=== PATIENT | female | born 1965 | race Caucasian/White ===

== ENCOUNTER → 2024-02-14 08:55 | Outpatient (REF) | payer OTHER, SELFPAY | LOC: WDC 08:55 | PROVIDERS: ATTENDING PHYSICIAN Internal Medicine | DX: R92.8 Other abnormal and inconclusive findings on diagnostic imaging of breast (principal) | CPT/HCPCS: 76642; 77061; 77065 ==

== ENCOUNTER → 2024-02-15 08:14 | Outpatient (REF) | payer OTHER, SELFPAY ==
--- NOTE | 2024-02-15 13:49 | OID.BR.INTR ---
[facility] Breast Navigator - Initial
- -
Did not meet patient at time of biopsy. Will follow up per protocol.
== END ==
LOC: WDC 08:14
PROVIDERS: ATTENDING PHYSICIAN Internal Medicine
DX: N63.13 Unspecified lump in the right breast, lower outer quadrant (principal)
CPT/HCPCS: 88305; 19083; 77065; 88341; 88342; 88360; A4648

== ENCOUNTER → 2024-03-06 08:36 | Outpatient (REF) | payer OTHER, SELFPAY | LOC: WDC 08:36 | PROVIDERS: ATTENDING PHYSICIAN Surgery | DX: C50.411 Malignant neoplasm of upper-outer quadrant of right female breast (principal) | CPT/HCPCS: 19285; 38792; 76942; 77065; A4648; A9541 ==

== ENCOUNTER 2024-03-07 06:07 | Day surgery (SDC) | payer OTHER, SELFPAY ==
[2024-03-02 08:30] VITALS: BMI 29.8
[2024-03-02 10:06] LABS: Hematocrit 41.5 % (37.0-47.0); Hemoglobin 13.6 g/dL (12.0-16.0); Mean Corp Hgb Conc. 32.8 g/dL (33.0-37.0); Mean Corpuscular Hgb 28.8 pg (27.0-31.0); Mean Corpuscular Volume 87.9 fL (81.0-99.0); Mean Platelet Volume 11.7 fL (7.4-10.4); Platelet Count 270 10^3/uL (130-400); Red Blood Cell Count 4.72 10^6/uL (4.20-5.40); Red Cell Dist. Width 12.7 % (11.5-14.5); White Blood Cell Count 6.4 10^3/uL (4.8-10.8)
[2024-03-02 10:27] LABS: ALT (SGPT) 13 U/L (0-35); AST (SGOT) 21 U/L (14-36); Albumin 4.6 g/dl (3.5-5.0); Alkaline Phosphatase 77 U/L (38-126); Blood Urea Nitrogen 13 mg/dl (7-17); Calcium 10.1 mg/dl (8.4-10.2); Carbon Dioxide 27 mmol/L (22-30); Chloride 103 mmol/L (98-107); Estimated Creatinine Clearance 78 ml/min; Glucose 109 mg/dl (70-99); Potassium 4.8 mmol/L (3.5-5.1); Sodium 139 mmol/L (135-145); Total Bilirubin 0.5 mg/dl (0.2-1.3); Total Protein 7.4 g/dl (6.3-8.2); eGFR > 60.00
[2024-03-02 10:46] LABS: Vitamin D, 25-OH*** 44.1 ng/mL (30-80)
[2024-03-07] VITALS (8 sets, daily range): BP systolic 115–154; BP diastolic 67–88; BMI 29.8; BMI 28.9
[2024-03-07] MEDS: TYLENOL 1000 MG PO (10:56)
[2024-03-07] MEDS: NORMOSOL-R 1000 IV (10:57)
[2024-03-07] MEDS: VANCOCIN 300 ML IV (11:05)
[2024-03-07] MEDS: VANCOCIN 300 MG IV (11:05)
[2024-03-07] MEDS: LOVENOX 40 MG SC (11:07)
--- NOTE | 2024-03-10 09:44 | W.IMMPOSTOP ---
Surgical Immed Post Op Note
-
Primary Surgeon: Jacquie
Assisting Surgeon: None
Pre-op Diagnosis: Right breast ca
Post-op Diagnosis: Same
Procedure Performed: Right localized lumpectomy, sentinel node mapping and biopsy, closure with oncoplastic mastoplasty
Anesthesia Type: TIVA
Specimen / Cultures: Right lumpectomy, sentinel nodes
Estimated Blood Loss: Minimal
Complications: None
Operative Findings: Neg nodes
[place] Node Bx Breast Cancer
[place] Node Bx Breast Cancer
Operation performed with curative intent: Yes
Tracer(s) to ID [place] Nodes in Non-Neoadjuvant setting: Radioactive Tracer
Tracer(s) to ID Sentinal Nodes in the Neoadjuvant Setting: N/A
All nodes at end of dye-filled Lymphatic Channel removed: N/A
All Significantly Radioactive Nodes were removed: Yes
All Palpably Suspicious Nodes were Removed: Yes
Bx Proven Pos Nodes Marked Prior to Chemo ID'd & Removed: N/A
== END 2024-03-07 15:15 | disposition home or self-care (01) ==
LOC: SDS 06:07
PROVIDERS: ATTENDING PHYSICIAN Surgery; FAMILY PHYSICIAN Internal Medicine
DX: C50.911 Malignant neoplasm of unspecified site of right female breast (principal); Z17.0 Estrogen receptor positive status [ER+]
CPT/HCPCS: 38525; 19301; 88305; 88307; 88332; 36415; 76098; 80053; 82306; 84134; 85027; 88331; 88342; 93005; A4648

== ENCOUNTER 2024-03-19 11:37 | Emergency (ER) | payer OTHER, SELFPAY ==
[2024-03-19 11:43] VITALS: BP 148/92
--- NOTE | 2024-03-19 12:35 | ED.GENMED ---
History of Present Illness
General
Chief Complaint: Post Operative Problem(s)
Source: patient
Time Seen by Provider: 03/19/24 12:07
Travel History
Have you had any contact with someone who has COVID-19?: No
Do you have any symptoms of coronavirus? Fever > 100 degrees, chills, cough, shortness of breath, sore throat, loss of taste or smell, muscle aches, or headache?: No
History of Present Illness
History of Present Illness:
59-year-old female presenting the emergency department for evaluation of wound to the right breast which she states is from a lumpectomy done on March 07 noting that she will intermittently have a orangeish yellow drainage from one of the wounds but
she is not sure from which. She denies any fevers, chills, rigors or any infectious symptoms and states she is not having any pain. She has a follow-up visit scheduled with her breast surgeon, Dr. Dhillon, on March 27.
Past History
Past History
ED Past Medical History: Cancer, HTN, Hypothyroidism and Psychiatric
ED Past Surgical History:
Social History
Tobacco: Non-smoker
Alcohol: None
Drug: None
Personal:
Living: with family
Review of Systems
Review of Systems
All Other Systems: ROS reviewed and negative except as documented in HPI and ROS
Phy Exam
Physical Exam
Physical Exam:
GENERAL: Alert , in no apparent distress
EYE: conjunctiva clear
Head: Normocephalic atraumatic
NECK: Supple,
ENT: mmm.
LUNGS: no acute respiratory distress
NEUROLOGICAL: Alert and oriented
SKIN: Warm and dry, chaperoned by ED RN Acacia: 2 separate well-healed incisions 1 along the inferior portion of the breast just underneath the areola and 1 along the medial aspect of the breast that is more vertically oriented are well-healed without
dehiscence or any surrounding erythema, dry, no drainage, no induration or fluctuance.
MUSCULOSKELETAL: well perfused.
PSYCH: Normal and appropriate interaction.
Scores
Heart Failure Risk
Heart Failure Risk Score: Not Applicable
Heart Score for Chest Pain Patients
STEMI patient?: Not applicable
Withdrawal Assessment of Alcohol
Withdrawal Assessment Completed?: Not applicable
Course
Vital Signs
Initial and Last Documented VS:
Initial Vital Signs
Temp Pulse Resp BP Pulse Ox
98.4 F 85 18 148/92 97
03/19/24 11:43 03/19/24 11:43 03/19/24 11:43 03/19/24 11:43 03/19/24 11:43
Last Documented Vital Signs
Temp Pulse Resp BP Pulse Ox
98.4 F 85 18 148/92 97
03/19/24 11:43 03/19/24 11:43 03/19/24 11:43 03/19/24 11:43 03/19/24 11:43
MDM/Problems Addressed
Differential Diagnosis Includes:
Postoperative cellulitis, abscess, seroma
MDM/Problems Addressed:
59-year-old female present emergency department for intermittent drainage from the right breast status post lumpectomy 2 weeks ago. No active drainage at this time. No signs of infection. I suspect the drainage patient is noting is likely from a
small postoperative seroma. Advised on wound care. Aware of return precautions. Otherwise stable for discharge home.
*Pulse Oximetry
Patient hypoxic: no
*Critical Care Note
Total Time (30-74mins, 75-104mins- exclusive of procedures): Not Applicable
Patient Management
Discussion with other providers: Business Risk Analyst
Escalation/DeEscalation of care consider admission/obs:
I notified patient's breast surgeon, Dr. Dhillon, who is aware and will ensure follow-up with the patient.
ED Attending Note
-
Portions of this chart may have been created with voice recognition software.� Occasional wrong word or��sound alike� substitutions may have occurred due to the inherent limitations of voice recognition software.
Discharge Plan
Departure
Patient Disposition: Home (Routine Discharge)
Date of Disposition: 03/19/24
Time of Disposition: 12:35
Patient with high blood pressure during this ER visit?: Yes
Discharge Problem:
Encounter for post surgical wound check
Instructions: Wound Care (DC)
Prescriptions:
No Action
bisoprolol fumarate 5 mg Tablet
5 mg PO NOON
alprazolam [Xanax] 0.25 mg Tablet
0.25 mg PO DAILY
levothyroxine [Synthroid] 50 mcg Tablet
50 mcg PO DAILY
ascorbic acid (vitamin C) [Vitamin C] 1,000 mg Tablet
1,000 mg PO DAILY
cholecalciferol (vitamin D3) [Vitamin D3] 125 mcg (5,000 unit) Tablet
125 mcg PO DAILY
Referrals:
Velvet Dhillon MD [Active] -
Niels Joya MD [Family Provider] -
Interventions
Interventions:
*Risk Screen - Suicide Last Done: 03/19/24 13:00
*General Assessment Last Done: 03/19/24 11:43
*Neglect/Abuse Screening Last Done: 03/19/24 13:00
*ED COVID-19 Vaccine History Last Done: 03/19/24 11:43
*Nursing Disposition Last Done: 03/19/24 13:02
ED-Skin Assessment Last Done: 03/19/24 13:00
Discharge Date and Time
Print Language: BENGALI
== END 2024-03-19 13:05 | disposition home or self-care (01) ==
LOC: EMR 11:37
PROVIDERS: EMERGENCY PHYSICIAN Emergency Medicine; FAMILY PHYSICIAN Internal Medicine
DX: Z48.01 Encounter for change or removal of surgical wound dressing (principal); I10 Essential (primary) hypertension
CPT/HCPCS: 99281